=== PATIENT | female | born 1960 | race Caucasian/White ===

== ENCOUNTER → 2017-10-13 | Outpatient (CLI) | payer BC, MEDICARE ==
[~2017-10-13] MED LIST: APIX5TAB PO; ASPI-496 PO; FLEC100T PO; LAMO100T PO; METO-99 PO; METO50TA82 PO; OLAN20TA3 PO; OMNIPAQUE 350 MG/ML, 150 ML BOTTLE ONE
== END | disposition home or self-care (01) ==
LOC: CFH 08:59
PROVIDERS: ATTEND Internal Medicine Cardiovascular Disease
DX: I48.91 Unspecified atrial fibrillation (principal)
CPT/HCPCS: 71046; 75572; Q9967

== ENCOUNTER 2017-10-16 06:08 | Observation (INO) | payer BC, MEDICARE ==
[2017-10-13 10:45] VITALS: BP 118/71
[~2017-10-16] VITALS: Ht 172.7 cm; Wt 92.8 kg
[~2017-10-16 06:08] MED LIST changes: -APIX5TAB PO; -METO50TA82 PO; -OMNIPAQUE 350 MG/ML, 150 ML BOTTLE ONE
[2017-10-16] MEDS ORDERED: SODIUM CHLORIDE 0.9% 1,000 ML IV SCH (06:14)
[2017-10-16] MEDS ORDERED: SODIUM CHLORIDE 0.9% 1,000 ML IV ONE (06:30)
[2017-10-16 06:55] LABS: BASOPHILS # (AUTO) 0.01 x10^3/uL (0-0.1); BASOPHILS % (AUTO) 0 % (0-1); EOSINOPHILS % (AUTO) 0 % (1-7); LYMPHOCYTES % (AUTO) 24 % (22-44); MD NO; MEAN CORPUSCULAR HEMOGLOBIN 30.8 pg (27.0-34.8); MEAN CORPUSCULAR VOLUME 93.4 fL (80-100); MEAN PLATELET VOLUME 7.5 fL (7.4-10.4); MONOCYTES # (AUTO) 0.41 x10^3/uL (0.2-0.8); MONOCYTES % (AUTO) 8 % (2-9); NEUTROPHILS # (AUTO) 3.63 x10^3/uL (1.8-6.8); NEUTROPHILS % (AUTO) 68 % (42-75); PLATELET COUNT 282 x10^3/uL (130-400); RED BLOOD COUNT 4.07 x10^6/uL (3.82-5.3); RED CELL DISTRIBUTION WIDTH 12.1 % (9.6-15.2)
[2017-10-16 07:07] LABS: ANION GAP 5 mmol/L (5-15); CALCIUM 8.7 mg/dL (8.5-10.1); CHLORIDE 112 mmol/L (98-107); CREATININE 0.81 mg/dL (0.55-1.02)
[2017-10-16] MEDS ORDERED: MIDAZOLAM 1 MG/ML, 2ML ONE (07:32)
[2017-10-16] MEDS ORDERED: FENTANYL PF 250 MCG/5ML ONE (07:33)
[2017-10-16] MEDS ORDERED: HEPARIN 1,000 UNITS/ML, 10ML ONE (07:55)
[2017-10-16] MEDS ORDERED: PROPOFOL 10 MG/ML, 20ML ONE (09:20)
[2017-10-16] MEDS ORDERED: DEXAMETHASONE 4 MG/ML, 1ML ONE (09:20)
[2017-10-16] MEDS ORDERED: SUCCINYLCHOLINE 20 MG/ML, 10ML ONE (09:20)
[2017-10-16] MEDS ORDERED: ROCURONIUM 10 MG/ML,10ML ONE (09:20)
[2017-10-16] MEDS ORDERED: ONDANSETRON 2MG/ML, 2ML ONE (09:20)
[2017-10-16] MEDS ORDERED: LIDOCAINE/PF 1%, 30ML ONE (09:57)
[2017-10-16] MEDS ORDERED: PROTAMINE SULFATE 10 MG/ML, 5ML ONE (11:38)
[2017-10-16] MEDS ORDERED: ACETAMINOPHEN 325 MG TABLET PO PRN ×2 (12:00)
[2017-10-16] MEDS ORDERED: OXYcodone 5 MG/5 ML ORAL.SOL UDC PO PRN (12:00)
[2017-10-16] MEDS ORDERED: ONDANSETRON ODT 8 MG PO PRN (12:00)
[2017-10-16] MEDS ORDERED: MORPHINE SULFATE 4 MG/ML, 1ML IVPush PRN (12:00)
[2017-10-16] MEDS ORDERED: FENTANYL PF 100 MCG/2ML IV PRN (12:00)
[2017-10-16] MEDS ORDERED: ZOLPIDEM 5MG TABLET PO PRN (12:00)
[2017-10-16] MEDS ORDERED: MEPERIDINE/PF 25MG/0.5ML IVPush PRN (12:00)
[2017-10-16] MEDS ORDERED: MIDAZOLAM 1 MG/ML, 2ML IV PRN (12:00)
[2017-10-16 13:20] VITALS: BP 120/79
[2017-10-16] MEDS: APIXABAN 5 MG TABLET PO SCH ×2 (16:10→21:26)
[2017-10-16 20:00] VITALS: BP 109/73
[2017-10-16] MEDS: LAMOTRIGINE 100 MG TABLET PO SCH (21:26)
[2017-10-16] MEDS: FLECAINIDE 100MG TABLET PO SCH (21:26)
[2017-10-17 01:53] VITALS: BP 102/66
[2017-10-17 07:15] VITALS: BP 101/69
[2017-10-17] MEDS: LAMOTRIGINE 100 MG TABLET PO SCH (08:19)
[2017-10-17] MEDS: FLECAINIDE 100MG TABLET PO SCH (08:19)
[2017-10-17] MEDS: APIXABAN 5 MG TABLET PO SCH (08:19)
[2017-10-17] MEDS ORDERED: METOPROLOL TARTRATE 50 MG TABLET PO SCH (09:00)
[2017-10-17] MEDS ORDERED: OLANZAPINE 10 MG TABLET PO SCH (09:00)
[2017-10-17] MEDS ORDERED: PNEUMOCOCCAL 23 VACCINE IM-VACC ONE (11:00)
[2017-10-17] MEDS ORDERED: APIX5TAB PO (12:14)
[2017-10-17] MEDS ORDERED: METO50TA82 PO (12:14)
[2017-10-17 13:05] VITALS: BP 110/77
== END 2017-10-17 13:30 | disposition home or self-care (01) ==
LOC: CACL 06:08 → ORIP 11:47 → 5SO 13:12 → DCLOUNGE 10-17 13:12
PROVIDERS: ADMIT Internal Medicine Cardiovascular Disease; ATTEND Internal Medicine Cardiovascular Disease
DX: I48.91 Unspecified atrial fibrillation (principal); I48.92 Unspecified atrial flutter; Z23 Encounter for immunization
CPT/HCPCS: 36415; 80048; 85025; 85347; 90471; 90732; 93312; 93321; 93325; 93613; 93656; 93662; C1730; C1732; C1759; C1766; C1893; C1894; G0378; J0330; J1100; J1644; J2250; J2405; J2704; J2720; J3010; J3490

== ENCOUNTER 2018-12-12 11:41 | Outpatient (CLI) | payer BC, MEDICARE | END 2018-12-12 23:59 | disposition home or self-care (01) | LOC: CFH 11:41 | PROVIDERS: ATTEND Internal Medicine Cardiovascular Disease | DX: I48.91 Unspecified atrial fibrillation (principal) | CPT/HCPCS: 71046; 75572; Q9967 ==

== ENCOUNTER 2018-12-14 06:37 | Observation (INO) | payer BC, MEDICARE ==
[~2018-12-14] VITALS: Ht 172.7 cm; Wt 91.6 kg
[2018-12-15 12:45] VITALS: BP 104/66
== END 2018-12-15 14:45 | disposition home or self-care (01) ==
LOC: CACL 06:37 → ORIP 12:04 → 5SO 13:51 → DCLOUNGE 12-15 14:30
PROVIDERS: ADMIT Internal Medicine Cardiovascular Disease; ATTEND Internal Medicine Cardiovascular Disease
DX: I48.91 Unspecified atrial fibrillation (principal); I48.92 Unspecified atrial flutter
CPT/HCPCS: 0399T; 36415; 85025; 93005; 93306; 93312; 93321; 93325; 93613; 93655; 93656; 93657; 93662; 96374; C1730; C1731; C1732; C1759; C1766; C1893; C1894; G0378; J0330; J0690; J1100; J1885; J2250; J2370; J2405; J2704; J3010; J3490; 85347

== ENCOUNTER → 2019-05-29 | Outpatient (CLI) | payer BC, MEDICARE ==
[~2019-05-29] MED LIST changes: +APIX5TAB PO; +CALC-534 PO; +CHOL5000 PO; +CYAN50008 PO; +FLEC50TA25 PO; +LAMO200T3 PO; +METO50TA82 PO; +REGADENOSON 0.4 MG/5 ML SYRINGE ONE; +UBID100C24 PO; +VENL37.52 PO; +[UNRECOGNIZED DRUG - OTHER] PO; +magnesium PO; +marijuana PO; +potassium citrate PO
== END | disposition home or self-care (01) ==
LOC: CFH 11:37
PROVIDERS: ATTEND Nurse Practitioner Family
DX: I48.91 Unspecified atrial fibrillation (principal)
CPT/HCPCS: 78452; 93017; A9502; J2785

== ENCOUNTER → 2020-01-24 | Outpatient (CLI) | payer BC, MEDICARE ==
[~2020-01-24] MED LIST changes: -LAMO100T PO; +LAMO100T8 PO; +Magnesium PO; +OMNIPAQUE 350 MG/ML, 150 ML BOTTLE ONE; -REGADENOSON 0.4 MG/5 ML SYRINGE ONE
== END | disposition home or self-care (01) ==
LOC: CFH 14:11
PROVIDERS: ATTEND Internal Medicine Cardiovascular Disease
DX: Z01.818 Encounter for other preprocedural examination (principal); Z20.828 Contact with and (suspected) exposure to other viral communicable diseases; I48.91 Unspecified atrial fibrillation; K44.9 Diaphragmatic hernia without obstruction or gangrene
CPT/HCPCS: 36415; 71046; 75572; 87635; Q9967

== ENCOUNTER 2020-01-29 05:42 | Observation (INO) | payer BC, MEDICARE ==
[~2020-01-29] VITALS: Ht 172.7 cm; Wt 104.5 kg
[~2020-01-29 05:42] MED LIST changes: -Magnesium PO; -OMNIPAQUE 350 MG/ML, 150 ML BOTTLE ONE
[2020-01-29] MEDS ORDERED: SODIUM CHLORIDE 0.9% 1,000 ML IV SCH ×2 (06:16→06:30)
[2020-01-29 06:23] VITALS: BP 133/84
[2020-01-29] MEDS ORDERED: Magnesium PO (06:27)
[2020-01-29] MEDS ORDERED: MIDAZOLAM 1 MG/ML, 2ML ONE (07:40)
[2020-01-29] MEDS ORDERED: FENTANYL PF 250 MCG/5ML ONE (07:40)
[2020-01-29] MEDS ORDERED: ROCURONIUM 10 MG/ML,10ML ONE (07:41)
[2020-01-29] MEDS ORDERED: LIDOCAINE-MPF 2% ,5ML ONE (07:41)
[2020-01-29] MEDS ORDERED: MEPERIDINE/PF 25MG/0.5ML IVPush PRN (08:00)
[2020-01-29] MEDS ORDERED: hydrALAzine 20 MG/ML, 1ML IV PRN (08:00)
[2020-01-29] MEDS ORDERED: OXYcodone 5 MG/5 ML ORAL.SOL UDC PO PRN (08:00)
[2020-01-29] MEDS ORDERED: FENTANYL PF 100 MCG/2ML IV PRN (08:00)
[2020-01-29] MEDS ORDERED: EPHEDRINE 50 MG/ML, 1ML IVPush PRN (08:00)
[2020-01-29] MEDS ORDERED: ONDANSETRON 2MG/ML, 2ML IVPush PRN (08:00)
[2020-01-29] MEDS ORDERED: HYDROmorphone 1 MG/ML, 1ML INJ IVPush PRN (08:00)
[2020-01-29] MEDS ORDERED: PROMETHAZINE 25 MG/ML, 1ML IVPush PRN (08:00)
[2020-01-29] MEDS ORDERED: ACETAMINOPHEN 325 MG TABLET PO PRN (08:00)
[2020-01-29] MEDS ORDERED: LABETALOL 5MG/ML, 20ML IV PRN (08:00)
[2020-01-29] MEDS ORDERED: SUCCINYLCHOLINE 20 MG/ML, 10ML ONE (08:06)
[2020-01-29] MEDS ORDERED: ONDANSETRON 2MG/ML, 2ML ONE (08:06)
[2020-01-29] MEDS ORDERED: DEXAMETHASONE 4 MG/ML, 1ML ONE (08:06)
[2020-01-29] MEDS ORDERED: PROPOFOL 10 MG/ML, 20ML ONE (08:06)
[2020-01-29] MEDS ORDERED: LIDOCAINE 1%, 20ML ONE (08:22)
[2020-01-29] MEDS ORDERED: HEPARIN 1,000 UNITS/ML, 10ML ONE ×3 (08:28→09:57)
[2020-01-29] MEDS ORDERED: SUGAMMADEX 200 MG/2 ML IVPush ONE (08:36)
[2020-01-29] MEDS ORDERED: PHENYLEPHRINE 10 MG/ML ONE (08:37)
[2020-01-29] MEDS ORDERED: ISOPROTERENOL 0.2MG/ML, 5ML ONE (08:53)
[2020-01-29] MEDS ORDERED: APIXABAN 5 MG TABLET PO SCH ×2 (11:30)
[2020-01-29] MEDS ORDERED: APIXABAN 5 MG TABLET ONE (11:37)
[2020-01-29 12:12] VITALS: BP 125/82
[2020-01-29 19:25] VITALS: BP 136/80
[2020-01-29] MEDS: COLCHICINE 0.6 MG CAPSULE PO SCH (20:40)
[2020-01-29] MEDS: FLECAINIDE 50MG TABLET PO SCH (20:41)
[2020-01-29] MEDS: APIXABAN 5 MG TABLET PO SCH (20:41)
[2020-01-29] MEDS ORDERED: LAMOTRIGINE 200 MG TABLET PO SCH (21:00)
[2020-01-30 01:32] VITALS: BP 124/77
[2020-01-30 07:32] VITALS: BP 126/80
[2020-01-30] MEDS: FLECAINIDE 50MG TABLET PO SCH (08:25)
[2020-01-30] MEDS: COLCHICINE 0.6 MG CAPSULE PO SCH (08:27)
[2020-01-30] MEDS: APIXABAN 5 MG TABLET PO SCH (08:27)
[2020-01-30] MEDS ORDERED: OLANZAPINE 10 MG TABLET PO SCH (09:00)
== END 2020-01-30 11:57 | disposition home or self-care (01) ==
LOC: CACL 05:42 → ORIP 11:09 → 5SO 12:05 → DCLOUNGE 01-30 11:46
PROVIDERS: ADMIT Internal Medicine Cardiovascular Disease; ATTEND Internal Medicine Cardiovascular Disease
DX: I48.0 Paroxysmal atrial fibrillation (principal); I48.92 Unspecified atrial flutter; F32.9 Major depressive disorder, single episode, unspecified; Z79.899 Other long term (current) drug therapy; Z79.01 Long term (current) use of anticoagulants
CPT/HCPCS: 85347; 93306; 93312; 93321; 93325; 93613; 93655; 93656; 93657; 93662; C1730; C1732; C1759; C1766; C1769; C1893; C1894; G0378; J0330; J1100; J1644; J2250; J2370; J2405; J2704; J3010; J3490

== ENCOUNTER → 2020-12-15 | Outpatient (CLI) | payer BC, MEDICARE ==
[~2020-12-15] MED LIST changes: +AMINOPHYLLINE 25 MG/ML, 10ML ONE; -CYAN50008 PO; +CYAN50009 PO; +Magnesium PO; +REGADENOSON 0.4 MG/5 ML SYRINGE ONE
== END | disposition home or self-care (01) ==
LOC: CFH 06:49
PROVIDERS: ATTEND Nurse Practitioner Family
DX: I08.3 Combined rheumatic disorders of mitral, aortic and tricuspid valves (principal); I10 Essential (primary) hypertension; E78.00 Pure hypercholesterolemia, unspecified; I48.91 Unspecified atrial fibrillation
CPT/HCPCS: 78452; 93017; 93306; 93356; A9502; J0280; J2785